=== PATIENT | female | born 1995 | race Caucasian/White ===

== ENCOUNTER 2023-11-15 09:58 | Emergency (ER) | payer OTHER ==
[~2023-11-15] VITALS: Ht 177.8 cm; Wt 87.1 kg
--- NOTE | 2023-11-15 10:06 | NUR ---
BIBS FROM HOME FOR LEFT LEG PAIN X 1 MONTH. PT TAKEN TO ER BED 3 FOR ER MD CHRISTENSEN
--- NOTE | 2023-11-15 10:10 | NUR ---
ER AT BEDSIDE FOR EVAL
--- NOTE | 2023-11-15 10:31 | NUR ---
Patient discharged to home in stable condition. Written and verbal after care instructions given. Patient verbalizes understanding of instruction.
[2023-11-15 10:33] VITALS: BP 120/72; TEMP 98.3; O2SAT 98
== END 2023-11-15 10:31 | disposition home or self-care (01) ==
LOC: ER 09:58
DX: M79.662 Pain in left lower leg (principal); Z60.2 Problems related to living alone